=== PATIENT | female | born 1950 | race Caucasian/White ===

== ENCOUNTER 2018-06-30 12:15 | Inpatient (IN) | payer OTHER ==
[~2018-06-30] VITALS: Ht 154.9 cm; Wt 78.9 kg
[2018-06-30] MEDS ORDERED: OMEPRAZOLE40 MG PO (15:12)
[2018-06-30] MEDS ORDERED: GLIPIZIDE10 MG PO (15:12)
[2018-06-30] MEDS ORDERED: JANUMET 50-1,01 EACH PO (15:12)
[2018-06-30] MEDS ORDERED: ATORVASTATIN CA10 MG PO (15:12)
[2018-06-30] MEDS ORDERED: LOSARTAN POTAS100 MG PO (15:12)
[2018-06-30] MEDS ORDERED: DICY20TA PO (15:13)
[2018-06-30] MEDS ORDERED: TENTRAL PO (15:13)
[2018-06-30] MEDS ORDERED: XYZAL5 MG PO (15:15)
[2018-06-30] MEDS ORDERED: SINGULAIR10 MG PO (15:15)
[2018-06-30] MEDS ORDERED: [UNRECOGNIZED DRUG - OTHER] PO (15:15)
[2018-06-30] MEDS ORDERED: SULINDAC200 MG PO (15:16)
== END 2018-07-06 20:04 | disposition home or self-care (01) | DRG 330 ==
LOC: O/R 07-03 05:25 → SURH 07-03 05:25
PROVIDERS: Urology; ADMIT Colon & Rectal Surgery
PROC: 0DTU4ZZ Resection of Omentum, Percutaneous Endoscopic Approach (ICD-10-PCS; 2018-07-03)
PROC: 0T788DZ Dilation of Bilateral Ureters with Intraluminal Device, Via Natural or Artificial Opening Endoscopic (ICD-10-PCS; 2018-07-03)
PROC: 0T788DZ Dilation of Bilateral Ureters with Intraluminal Device, Via Natural or Artificial Opening Endoscopic (ICD-10-PCS; 2018-07-03)
PROC: 0DJD8ZZ Inspection of Lower Intestinal Tract, Via Natural or Artificial Opening Endoscopic (ICD-10-PCS; 2018-07-03)
PROC: 0TJB8ZZ Inspection of Bladder, Via Natural or Artificial Opening Endoscopic (ICD-10-PCS; 2018-07-03)
PROC: 0DTN0ZZ Resection of Sigmoid Colon, Open Approach (ICD-10-PCS; principal; 2018-07-03 07:00)
PROC: 07TC4ZZ Resection of Pelvis Lymphatic, Percutaneous Endoscopic Approach (ICD-10-PCS; 2018-07-03 07:00)
DX: K57.32 Diverticulitis of large intestine without perforation or abscess without bleeding (principal); C18.7 Malignant neoplasm of sigmoid colon; R59.0 Localized enlarged lymph nodes; I11.9 Hypertensive heart disease without heart failure; E11.9 Type 2 diabetes mellitus without complications; M25.561 Pain in right knee; G47.33 Obstructive sleep apnea (adult) (pediatric)